=== PATIENT | female | born 1940 | race African-American/Black ===

== ENCOUNTER 2025-05-10 12:05 | Emergency (ER) | payer OTHER ==
[~2025-05-10] VITALS: Ht 152.4 cm; Wt 83.1 kg
[2025-05-10] MEDS ORDERED: IOHEXOL 350 MG/ML 100 ML VIAL ONE (12:37)
[2025-05-10] MEDS ORDERED: SODIUM CHLORIDE 0.9% 100 ML ONE (12:37)
[2025-05-10 12:39] LABS: PLATELET COUNT (AUTO) 170 K/uL (150-450); RED BLOOD CELL COUNT(AUTO) 4.10 MIL/uL (4.00-5.20); RED CELL DISTRIBUTION WIDTH 15.7 % (11.5-14.5); WHITE BLOOD COUNT (AUTO) 2.0 K/uL (4.5-11.0)
[2025-05-10 12:49] LABS: TROPONIN I-HIGH SENSITIVITY 10 ng/L (<51)
[2025-05-10 12:52] VITALS: BP 154/78; PULSE 68; RESP 18; TEMP 97.4; O2SAT 96
[2025-05-10] MEDS ORDERED: LISI-892 PO (12:52)
[2025-05-10] MEDS ORDERED: AMLO2.5T96 PO (12:52)
[2025-05-10] MEDS ORDERED: GLIP5TAB16 PO (12:52)
[2025-05-10] MEDS ORDERED: ATEN-187 PO (12:52)
[2025-05-10] MEDS ORDERED: ATOR-427 PO (12:52)
[2025-05-10] MEDS ORDERED: HYDR25TA2 PO (12:52)
[2025-05-10 12:57] LABS: ALCOHOL, BLOOD (SERUM) < 3 mg/dL (0-10)
[2025-05-10 13:00] LABS: CALCIUM, TOTAL 8.8 mg/dL (8.8-10.5); CREATININE 1.35 mg/dL (0.60-1.30); GLOMERULAR FILTR. RATE CALC 37.0 mL/min (>60); GLUCOSE,RANDOM 126.0 mg/dL (70-110); SODIUM SERUM 140.0 mmol/L (136-145); UREA NITROGEN, BLOOD 32.0 mg/dL (7-18)
[2025-05-10 13:05] LABS: ASPARTATE AMINOTRANSFERASE 16.0 U/L (15-37); TOTAL PROTEIN, SERUM 6.5 g/dL (6.4-8.2)
[2025-05-10 13:13] LABS: COVID AG,FIA SOURCE NASAL SWAB
[2025-05-10 13:15] LABS: CHOL/HDL RATIO 2.2 (3.9-5.7); LDL CHOL (CALC.) 68.0 mg/dL (0-130)
[2025-05-10 13:27] LABS: APPEARANCE,URINE CLEAR (CLEAR); GLUCOSE, URINE (UA) TRACE mg/dL (NEGATIVE); LEUKOCYTE ESTERASE ,URINE NEGATIVE (NEGATIVE); NITRATE,URINE NEGATIVE (NEGATIVE); OCCULT BLOOD,URINE NEGATIVE (NEGATIVE); PH,URINE DRUG SCREEN 6.0 (5.0-8.0); SPECIFIC GRAVITIY, URINE 1.027 (1.003-1.030)
[2025-05-10 13:31] LABS: SQUAMOUS EPITHELIAL CELL,UR Rare /LPF (None Seen)
[2025-05-10 13:35] LABS: ALCOHOL, URINE DRUG SCREEN NEGATIVE (NEGATIVE); AMPHET/METH SCREEN,URINE NEGATIVE (NEGATIVE); BARBITURATE SCREEN, URINE NEGATIVE (NEGATIVE); CANNABINOID SCREEN,URINE NEGATIVE (NEGATIVE); COCAINE SCREEN,URINE NEGATIVE (NEGATIVE); METHADONE SCREEN, URINE NEGATIVE (NEGATIVE)
[2025-05-10 13:45] LABS: SARS-COV2 (COVID) ANTIGEN,FIA Negative (Negative)
[2025-05-10 13:47] LABS: INFLUENZA TYPE A NEGATIVE FOR TYPE A (NEGATIVE); INFLUENZA TYPE B NEGATIVE FOR TYPE B (NEGATIVE)
== END 2025-05-10 14:42 | disposition short-term general hospital (02) ==
LOC: EMS 12:07
DX: R55 Syncope and collapse (principal); D70.9 Neutropenia, unspecified; E11.9 Type 2 diabetes mellitus without complications; I10 Essential (primary) hypertension; R53.1 Weakness; R06.02 Shortness of breath; R19.7 Diarrhea, unspecified; E78.5 Hyperlipidemia, unspecified; Z20.822 Contact with and (suspected) exposure to COVID-19
CPT/HCPCS: 99291; 70496; 71045; 87426; 80061; 80053; 81001; 82962; 83036; 83735; 84484; 85025; 85610; 85730; 87804; 86850; 86900; 86901; 36415; 70498; 93005; 80307; 70450; G0480; Q9967; J7050; 82948